=== PATIENT | female | born 1975 | race Caucasian/White ===

== ENCOUNTER 2020-11-19 11:25 | Inpatient (IN) | payer MEDICARE, MEDICAID, SELFPAY ==
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
[2020-11-19 14:00] VITALS: BP 152/99; PULSE 100; RESP 17; TEMP 36.7; O2SAT 96
[2020-11-19] MEDS: ARIPiprazole 10 mg Tablet PO (14:47)
[2020-11-19] MEDS: amlodipine 5 mg Tablet PO (14:47)
[2020-11-19] MEDS: lisinopril 10 mg Tablet PO (14:47)
[2020-11-19] MEDS: lamoTRIgine 25 mg Tablet PO (14:47)
[2020-11-19] MEDS: famotidine 20 mg Tablet PO (20:56)
[2020-11-19] MEDS: acetaminophen 325 mg Tablet 650 MG PO (21:09)
[2020-11-19 22:00] VITALS: BP 186/90; PULSE 72; RESP 15; TEMP 37.1; O2SAT 96
[2020-11-20 06:00] VITALS: BP 105/70; PULSE 85; RESP 19; TEMP 36.8; O2SAT 98
[2020-11-20] MEDS: famotidine 20 mg Tablet PO ×2 (08:32→21:42)
[2020-11-20] MEDS: ARIPiprazole 10 mg Tablet PO (08:32)
[2020-11-20] MEDS: lamoTRIgine 25 mg Tablet PO (08:32)
[2020-11-20] MEDS: lisinopril 10 mg Tablet PO (08:32)
[2020-11-20] MEDS: amlodipine 5 mg Tablet PO (08:32)
[2020-11-20] MEDS: acetaminophen 325 mg Tablet 650 MG PO (08:33)
[2020-11-20 14:00] VITALS: BP 168/90; PULSE 92; RESP 17; TEMP 36.7; O2SAT 96
--- NOTE | 2020-11-20 15:25 | PM.NPN ---
Subjective NPU Subjective: Interval history: I met with the patient in her room. She says that she felt uneasy last night and uncomfortable, largely because she is in an unfamiliar environment. Her usual sleep at home is 4 to 5 hours. Her appetite is good and her energy level is good at home but decreased here. She rates her depression at 6/10 in severity and her anxiety at 8/10 in severity. She continues to have a wish to , but has not been thinking about ways to kill her self today. She denies any side effects from her medication. We talked about her anxiety, and today she is willing to try Seroquel, which she says she has taken before and it has been helpful. We will use Seroquel both for anxiety during the day and for insomnia at bedtime. The patient understands risks, benefits, side effects, and alternatives and consents to its use. Mental Status Exam MSE Comments: The patient is more able to cooperate today. She has some psychomotor agitation. Speech is at a regular rate and rhythm. She is alert and oriented to person and situation. Attention and memory are adequate for the exam. Mood is anxious and depressed. Affect is mood congruent. Thought process is more goal-directed and linear. Thought content: She denies auditory and visual hallucinations. She denies homicidal ideation. She has passive suicidal ideation. Insight and judgment are improving. Vitals/I&O/Wt Last Vital Signs Temp 98.1 F 11/20/20 14:00 Pulse 92 11/20/20 14:00 Resp 17 11/20/20 14:00 BP 168/90 11/20/20 14:00 Pulse Ox 96 11/20/20 14:00 Weight last 48 hrs Weight 58 kg A&P Assessment and plan (1) Suicidal ideation: Status: Acute (2) Amphetamine abuse: Status: Acute (3) Cannabis abuse: Status: Acute (4) Major depressive disorder, recurrent, severe with psychotic features: Status: Acute (5) Psychosis: Status: Acute Qualifiers: Psychosis type: unspecified psychosis type Qualified Code(s): F29 - Unspecified psychosis not due to a substance or known physiological condition Additional A&P Information The patient is a 45-year-old woman with depression, psychosis, and suicidal ideation Who Was Transferred from [facility] in [place], [place]. 1. Continue current medication: We started Abilify 10 mg daily for psychosis. We will add Seroquel 25mg three times a day as needed for anxiety or agitation. Also Seroquel 100 mg at bedtime for both psychosis and insomnia. 2. Continue every 15 minute checks for safety. 3. Encourage individual, group and milieu therapies. 4. Encourage sober living treatment after discharge at the highest level of care to which he is willing to commit. 5. Continue 96-hour hold, and decide whether to apply for a 21-day hold or release the patient. Involuntary Hold Information 96 Hour Hold: 96 Hour Involuntary Admission: Yes 96 Hour Hold Ending Date: 11/24/20 96 Hour Hold Ending Time: 12:01 Attestations NPU Medical Necessity Statement*: Psychiatric hospitalization is medically necessary to prevent access to lethal means, to reevaluate medication, and to coordinate a safe discharge. Likely length of stay is 2-4 days. Coding Level of Care Code Acute Universal Grinder Set Up Operator for Johana Mejia Diagnoses Suicidal ideation R45.851 Amphetamine abuse F15.10 Cannabis abuse F12.10 Major depressive disorder, recurrent, severe with psychotic features F33.3 Psychosis F29 Psychosis type: unspecified psychosis type
[2020-11-20] MEDS: quetiapine 100 mg Tablet PO (20:05)
[2020-11-20] MEDS: trazodone 50 mg Tablet PO (20:06)
--- NOTE | 2020-11-20 20:10 | PC.NURSE ---
pt requested sleep med, Trazodone 50mg po given for sleep.
[2020-11-20 20:51] VITALS: BP 151/85; PULSE 102; RESP 17; TEMP 36.2; O2SAT 95
--- NOTE | 2020-11-20 21:30 | PC.NURSE ---
pt resting quietly with both eyes closed.
[2020-11-21 06:00] VITALS: BP 126/72; PULSE 72; RESP 17; TEMP 36.4; O2SAT 96
[2020-11-21] MEDS: lamoTRIgine 25 mg Tablet PO (07:57)
[2020-11-21] MEDS: famotidine 20 mg Tablet PO (07:57)
[2020-11-21] MEDS: lisinopril 10 mg Tablet PO (07:57)
[2020-11-21] MEDS: amlodipine 5 mg Tablet PO (07:57)
[2020-11-21] MEDS: ARIPiprazole 10 mg Tablet PO (07:57)
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
[2020-11-21 14:17] VITALS: BP 126/72; PULSE 72; RESP 17; TEMP 36.4; O2SAT 96
== END 2020-11-21 17:25 | disposition home or self-care (01) | DRG 885 ==
PROVIDERS: Admitting Provider Psychiatry & Neurology Child & Adolescent Psychiatry; Visit Provider Psychiatry & Neurology Child & Adolescent Psychiatry
DX: F33.3 Major depressive disorder, recurrent, severe with psychotic symptoms (principal); R45.851 Suicidal ideations; F15.159 Other stimulant abuse with stimulant-induced psychotic disorder, unspecified; F15.14 Other stimulant abuse with stimulant-induced mood disorder; F12.159 Cannabis abuse with psychotic disorder, unspecified; F41.9 Anxiety disorder, unspecified; G47.00 Insomnia, unspecified